=== PATIENT | male | born 1990 | race Caucasian/White ===

== ENCOUNTER 2020-03-19 09:58 | Emergency (ER) | payer BC | END 2020-03-19 10:55 | disposition home or self-care (01) | LOC: JVIRT 09:58 | DX: Z03.818 Encounter for observation for suspected exposure to other biological agents ruled out (principal) | CPT/HCPCS: C9803; Q3014-GT; U0003 ==

== ENCOUNTER 2021-11-14 19:20 | Emergency (ER) | payer BC ==
[2021-11-14 19:27] VITALS: BP 148/108; PULSE 105; TEMP 98.6; BMI 30.1
[2021-11-14] MEDS ORDERED: ASPIRIN 81 MG CHEWABLE TABLETS PO ONE (20:23)
[2021-11-14] MEDS ORDERED: SODIUM CHLORIDE 1,000 ML IV STA (20:23)
[2021-11-14] MEDS ORDERED: KETOROLAC TROMETHAMINE 15 MG/ML VIAL IVPUSH ONE (20:24)
[2021-11-14] MEDS ORDERED: KETOROLAC TROMETHAMINE 15 MG/ML VIAL ONE (20:27)
[2021-11-14] MEDS ORDERED: ASPIRIN 81 MG CHEWABLE TABLETS ONE (20:27)
[2021-11-14 21:33] LABS: BASO % 0.3 % (0-2.0); EOS % 1.3 % (0-4.5); HEMATOCRIT 44.5 % (35.4-49); HEMOGLOBIN 15.9 GM/dL (11.7-16.9); LYMPH % 24.2 % (8-40); MCHC 35.7 g/dl (32.0-35.9); MEAN CELL VOLUME 86.8 fl (80-96); MEAN PLT VOLUME 10.3 fl (7.5-11.1); MONO % 5.8 % (3.8-10.2); NEUT % 68.4 % (42.8-82.8); PLATELET COUNT 237 10^3/uL (134-434); RBC 5.13 M/mm3 (4.00-5.60); RDW 12.2 % (11.9-15.9); WHITE BLOOD COUNT 13.7 K/mm3 (4.0-10.0)
[2021-11-14 21:40] LABS: INR 1.14 (0.83-1.09); PROTHROMBIN TIME (PATIENT) 13.1 SEC (9.7-13.0)
[2021-11-14 21:43] LABS: ACTIVATED PTT 33.1 SECONDS (25.2-36.5)
[2021-11-14 21:47] LABS: CHLORIDE 102 mmol/L (98-107); SODIUM 139 mmol/L (136-145)
[2021-11-14 21:49] LABS: CALCIUM 9.3 mg/dL (8.5-10.1)
[2021-11-14 21:50] LABS: ALBUMIN 4.4 g/dl (3.4-5.0); ANION GAP 11 MMOL/L (8-16); BLOOD UREA NITROGEN 16.5 mg/dL (7-18); CO2 26 mmol/L (21-32); GLUCOSE,RANDOM 101 mg/dL (74-106); MAGNESIUM 2.2 mg/dL (1.8-2.4)
[2021-11-14 21:53] LABS: CREATININE 1.1 mg/dL (0.55-1.3); SGPT/ALT 85 U/L (13-61)
[2021-11-14 21:55] LABS: BILIRUBIN,TOTAL 0.4 mg/dL (0.2-1); TOT PROT 7.9 g/dl (6.4-8.2)
[2021-11-14 21:56] LABS: ALK PHOS 123 U/L (45-117)
[2021-11-14 21:58] LABS: N-TERMINAL BNP 15.5 pg/ml (5-125)
[2021-11-14 22:01] LABS: SGOT/AST 41 U/L (15-37)
[2021-11-14 22:53] LABS: ANISOCYTOSIS 2+; MACROCYTOSIS 0
[2021-11-14 23:07] LABS: PLATELET ESTIMATE ADEQUATE
== END 2021-11-15 00:30 | disposition home or self-care (01) ==
LOC: JER 19:20
PROC: 3E033GC Introduction of Other Therapeutic Substance into Peripheral Vein, Percutaneous Approach (ICD-10-PCS; principal; 2021-11-14)
DX: R07.9 Chest pain, unspecified (principal)
CPT/HCPCS: 36415; 71046-TC-FY; 80053; 83735; 83880; 84484; 85025; 85610; 85730; 93005; 93010; 99285-25